=== PATIENT | female | born 1980 | race Native Hawaiian/Other Pacific Islander ===

== ENCOUNTER 2016-10-10 09:14 | Emergency (ER) | payer SELFPAY ==
[~2016-10-10] VITALS: Ht 162.6 cm; Wt 60.0 kg
[2016-10-10 09:16] VITALS: BP 125/81; PULSE 77; RESP 12; TEMP 98.7; O2SAT 99
--- NOTE | 2016-10-10 10:09 | PD ---
HPI Chief Complaint: Garage Attendant Problem/Complaint Time Seen by Provider: 09:23 Travel History International Travel<30 days: Yes Contact w/Intl Traveler<30days: Yes Name of Country Traveled to: [place] Traveled to known affect area: No History of Present Illness HPI 36-year-old female complains of vaginal discharge and itching and burning. Patient states the symptoms started 3 days ago. Patient denies dysuria or frequency. Patient denies any abdominal or pelvic pain. Patient denies any vaginal bleeding. Patient denies any chance of being . PFSH Past Medical History Medical History: Denies Significant Hx Tetanus Vaccination: Unknown Influenza Vaccination: No ?: Not LMP: 09/2016 Past Surgical History Other Surgery: Yes (BREAST AUGMENTATION) Social History Alcohol Use: No Tobacco Use: No Substance Use: No Allergies-Medications (Allergen,Severity, Reaction): Coded Allergies: No Known Allergies (Unverified , 10/10/16) Reported Meds & Prescriptions Reported Meds & Active Scripts Active No Active Prescriptions or Reported Medications Review of Systems General / Constitutional: No: Fever Eyes: No: Visual changes HENT: No: Headaches Cardiovascular: No: Chest Pain or Discomfort Respiratory: No: Shortness of Breath Gastrointestinal: No: Abdominal Pain Genitourinary: Positive: Discharge, No: Dysuria Musculoskeletal: No: Pain Skin: No Rash Neurologic: No: Weakness Psychiatric: No: Depression Endocrine: No: Polydipsia Hematologic/Lymphatic: No: Easy Bruising Physical Exam Narrative GENERAL: Well-nourished, well-developed patient. SKIN: Focused skin assessment warm/dry. HEAD: Normocephalic. EYES: No scleral icterus. No injection or drainage. NECK: Supple, trachea midline. No JVD or lymphadenopathy. CARDIOVASCULAR: Regular rate and rhythm without murmurs, gallops, or rubs. RESPIRATORY: Breath sounds equal bilaterally. No accessory muscle use. GASTROINTESTINAL: Abdomen soft, non-tender, nondistended. MUSCULOSKELETAL: No cyanosis, or edema. BACK: Nontender without obvious deformity. No CVA tenderness. [employer] exam: Patient has a thick whitish greenish discharge from the vaginal vault. No cervical motion tenderness. Uterus is nonenlarged and nontender palpation. No adnexal masses tenderness. Data Data Last Documented VS Vital Signs Date Time Temp Pulse Resp B/P (MAP) Pulse Ox O2 Delivery O2 Flow Rate FiO2 10/10/16 09:16 98.7 77 12 125/81 (96) 99 Orders Orders Gc And Chlamydia Pcr (10/10/16 09:33) Wet Prep Profile (10/10/16 09:33) Labs Laboratory Tests Test 10/10/16 09:40 Clue Cells (Wet Prep) NONE SEEN Vaginal Trichomonas (Wet Prep) NONE SEEN Vaginal Yeast (Wet Prep) NONE SEEN MDM Medical Decision Making Medical Screen Exam Complete: Yes Emergency Medical Condition: Yes Differential Diagnosis Differential diagnosis including bacterial vaginosis, candidal vaginitis, cervicitis, PID. Narrative Course 36-year-old female with vaginal discharge or itching burning. Diagnosis Primary Impression: Evy vaginitis Patient Instructions: General Instructions Additional Instructions: Take medication as directed. Follow-up with personal physician. Return if worse. Med/Other Pt SpecificInfo: Prescription(s) given Scripts Fluconazole (Diflucan) 150 Mg Tab 150 MG PO ONCE for Infection, #1 TAB 0 Refills Prov: Castillo Victor MD 10/10/16 Disposition: 01 DISCHARGE HOME Condition: Stable Castillo Victor MD Oct 10, 2016 10:09
[2016-10-10] MEDS ORDERED: DIFL150T PO (10:10)
[2016-10-10 11:54] LABS: CHLAMYDIA PCR NOT DETECTED (NOT DETECT); NEISSERIA PCR NOT DETECTED (NOT DETECT)
== END 2016-10-10 10:31 | disposition home or self-care (01) ==
LOC: NEPD 09:14
DX: B37.3 Candidiasis of vulva and vagina (principal)
CPT/HCPCS: 87210; 87491; 87591; 99284